=== PATIENT | female | born 1930 | race Caucasian/White ===

== ENCOUNTER → 2017-08-15 | Outpatient (CLI) | payer MEDICARE ==
--- NOTE | 2017-08-15 12:55 | XR ---
EXAMINATION TYPE: XR foot complete RT DATE OF EXAM: 08/15/2017 COMPARISON: NONE HISTORY: Pain TECHNIQUE: Three views are submitted. FINDINGS: There is diffuse osteopenia. Arthropathy of the first MTP joint. Vascular calcifications noted. Small plantar calcaneal spur. There is no acute fracture or dislocation. IMPRESSION: 1. No acute fracture or dislocation. If symptoms persist, follow-up exam in 7 to 10 days could be ob tained. 2. Diffuse osteopenia and arthropathy of the first MTP joint.
== END | disposition home or self-care (01) ==
LOC: RADXRMAIN 12:22
PROVIDERS: ATTEND Internal Medicine
DX: M85.871 Other specified disorders of bone density and structure, right ankle and foot (principal); M12.871 Other specific arthropathies, not elsewhere classified, right ankle and foot